=== PATIENT | male | born 1990 | race Caucasian/White ===

== ENCOUNTER 2021-06-23 05:34 | Outpatient (CLI) | payer BC ==
[~2021-06-23] VITALS: Ht 170.2 cm; Wt 70.5 kg
== END 2021-06-28 15:57 | disposition home or self-care (01) ==
LOC: PREOP 05:34
PROVIDERS: ATTEND Surgery
DX: Z01.818 Encounter for other preprocedural examination (principal)

== ENCOUNTER 2021-06-30 08:05 | Day surgery (SDC) | payer BC ==
[~2021-06-30] VITALS: Ht 170.2 cm; Wt 70.5 kg
[2021-06-30] VITALS (10 sets, daily range): BP systolic 107–139; BP diastolic 65–89
[2021-06-30] MEDS ORDERED: ceFAZolin INJECTION 1,000 MG ONE (08:44)
[2021-06-30] MEDS: LACTATED RINGERS 1,000 ML IV PRN ×2 (08:45→10:50)
[2021-06-30] MEDS ORDERED: ceFAZolin INJECTION 1,000 MG VIAL IV ONE (09:00)
--- NOTE | 2021-06-30 09:30 | Progress Note-Pre Operative ---
Pre-Operative Progress Note H&P Reviewed The H&P was reviewed, patient examined and no changes noted. Date Seen by Provider: Jun 30, 2021 Time Seen by Provider: 09:30 Date H&P Reviewed: Jun 30, 2021 Time H&P Reviewed: 09:30 Pre-Operative Diagnosis: umbilical hernia DARRYL GONZALEZ DO Jun 30, 2021 09:30
[2021-06-30] MEDS ORDERED: fentaNYL INJ 100 MCG/2 ML AMP ONE (09:47)
[2021-06-30] MEDS ORDERED: ONDANSETRON 4 MG/2 ML (SDV) Z0FRAN ONE (09:47)
[2021-06-30] MEDS ORDERED: GLYCOPYRROLATE 0.2 MG/ML (ROBINUL) 2 ML VIAL ONE (09:47)
[2021-06-30] MEDS ORDERED: NEOSTIGMINE 3 MG/3 ML VIAL ONE (09:47)
[2021-06-30] MEDS ORDERED: ROCURONIUM 10 MG/ML 5 ML SYRINGE IV ONE (09:47)
[2021-06-30] MEDS ORDERED: LIDOCAINE PF 2% 5 ML (XYLOCAINE) VIAL ONE (09:47)
[2021-06-30] MEDS ORDERED: proPOfol 200 MG/20 ML (DIPRIVAN) VIAL IV ONE (09:47)
[2021-06-30] MEDS ORDERED: MIDAZOLAM 2 MG/2 ML (VERSED) VIAL ONE (09:48)
[2021-06-30] MEDS ORDERED: LIDOCAINE/EPI 1%-1:200,000 (XYLOCAINE) 30 ML VIAL ONE (09:50)
[2021-06-30] MEDS ORDERED: HYDROmorphone 2 MG/ML VIAL (DILAUDID) ONE (11:32)
[2021-06-30] MEDS ORDERED: KETOROLAC 30 MG/ML VIAL ONE (11:34)
[2021-06-30] MEDS ORDERED: SEVOFLURANE (ULTANE) 15 ML INHAL SOLN ONE (11:35)
[2021-06-30] MEDS ORDERED: ACHD5005 PO (11:45)
[2021-06-30] MEDS ORDERED: DOCU-143 PO (11:45)
--- NOTE | 2021-06-30 11:47 | Discharge Inst-Simple/Standard ---
Discharge Inst-Standard Discharge Medications New, Converted or Re-Newed RX: Transmitted to Pharmacy Patient Instructions/Follow Up Plan of Care/Instructions/FU: 2-3 weeks Casandra Activity as Tolerated: No Discharge Diet: Regular Diet Other Inst to Patient Follow up Appt: Make appointment for 2-3 week. Instructions: No lifting greater than 10 pounds. No strenuous activity. May shower in 24 hours, no tub bath or soaking. Use incentive spirometer at home as directed. No Smoking Skin/Wound Care: You have special glue over your incision that will fall off on it's own. Symptoms to Report: Appetite Changes, Extremity Discoloration, Numbness/Tingling, Swelling Increas ed, Bleeding Excessive, Eyesight Changes, Pain Increased, Urine Color Change, Constipation(Persistent), Fever over 101 degree F, Pain/Pressure in chest, Urinating Difficulty, Cough Up/Vomit Blood, Heart Beat Irreg/Pounding, Pain/Pressure in jaw, Vaginal Bleeding Increase, Cramps in feet or legs, Lightheadedness, Pain/Pressure in shoulder, Diarrhea(Persistent), Memory Changes Suddenly, Questions/Concerns, Weight gain consecutive days, Dizziness/Fainting, Nausea/Vomiting, Shortness of Breath, Weight gain over 2 pounds If questions or concerns contact your physician Or seek help at emergency department. DARRYL GONZALEZ DO Jun 30, 2021 11:47
--- NOTE | 2021-06-30 11:49 | Progress Note-Post Operative ---
Post-Operative Progess Note Surgeon (s)/Fish Fryer (s) Surgeon DARRYL GONZALEZ DO Fish Fryer: Dr. Elena to assist in retraction dissection and closure. Pre-Operative Diagnosis umbilical hernia Post-Operative Diagnosis incarcerated umbilical hernia Procedure & Operative Findings Date of Procedure 06/30/21 Procedure Performed/Findings robotic incarcerated umbilical hernia repair with mesh Anesthesia Type general Estimated Blood Loss Estimated blood loss (mL): minimal Specimens/Packing Specimens Removed na DARRYL GONZALEZ DO Jun 30, 2021 11:49
[2021-06-30] MEDS ORDERED: HYDROmorphone 2 MG/ML VIAL (DILAUDID) IV ONE (12:00)
[2021-06-30] MEDS ORDERED: ONDANSETRON 4 MG/2 ML (SDV) Z0FRAN IVP PRN (12:00)
[2021-06-30] MEDS ORDERED: HYDROcodone/APAP 5 MG/325 MG (LORTAB) TAB ONE (12:57)
[2021-06-30] MEDS ORDERED: HYDROcodone/APAP 5 MG/325 MG (LORTAB) TAB PO ONE (13:00)
--- NOTE | 2021-06-30 13:12 | Anesthesia-General Post-Op ---
General Patient Condition Mental Status/LOC: Same as Preop Cardiovascular: Satisfactory Nausea/Vomiting: Absent Respiratory: Satisfactory Pain: Controlled Complications: Absent Post Op Complications Complications None Follow Up Care/Instructions Patient Instructions None needed. Anesthesia/Patient Condition Patient Condition Patient is doing well, no complaints, stable vital signs, no apparent adverse anesthesia problems. No complications reported per nursing. D/C home per [facility] Criteria: Yes PEDRITO IBRAHIM CRNA Jun 30, 2021 13:12
--- NOTE | 2021-07-01 21:53 | OPERATIVE REPORT ---
DATE OF SERVICE: 06/30/2021 PREOPERATIVE DIAGNOSIS: Umbilical hernia. POSTOPERATIVE DIAGNOSIS: Incarcerated umbilical hernia. PROCEDURE: Robotic incarcerated umbilical hernia repair with mesh. SURGEON: Darryl Guajardo DO. OVEREDGER: Dr. Elena, assisted in retraction, dissection and closure. ANESTHESIA: General. ESTIMATED BLOOD LOSS: Minimal. COMPLICATIONS: None. INDICATIONS: The patient is a 30-year-old male with umbilical hernia that causing discomfort. He understands risks and benefits and wishes to proceed. Consent was signed in the chart. DESCRIPTION OF PROCEDURE: The patient was taken to the operating suite, was prepped and draped in sterile fashion. Surgical pause was performed. Local anesthetic was infiltrated in the left upper quadrant and 11 blade scalpel was used to make a small skin incision and cautery used to dissect down to the fascia, which was then scored, the muscle was divided bluntly. The posterior fascia was divided and the pittman trocar was then inserted into the abdomen and pneumoperitoneum was achieved. Under direct visualization of the laparoscope, two 5 mm trocars were placed in left lower quadrant. The robot was then docked. Scissors with cautery was used to take down the falciform ligament, also finding the hernia, which was just above the umbilicus, which was incarcerated. Defect was small. A stab incision was made at the hernia site. An Echo Ventralight mesh was inserted in the abdomen, which was grasped and pulled up balloon was insufflated using 2-0 180 V-Loc. The mesh was sutured circumferentially. The balloon was removed and an inner stitch on the mesh was placed. This was done with a decreased abdominal pressure. The robot was then undocked, the trocars were removed and the 12 mm fascial defect was then closed using 0 Vicryl in a [id number] fashion. The skin was then closed using 4-0 Monocryl in a subcuticular fashion and the skin was then washed and dried. Skin Affix was placed over the incisions. The patient tolerated procedure well without any complications, taken to recovery room in stable condition. Job ID: [id number] DocumentID: [id number] Dictated Date: 07/01/2021 18:05:36 Rotary Drum Dyer Date: 07/01/2021 21:53:10 Dictated By: DARRYL GUAJARDO DO
== END 2021-06-30 13:45 ==
LOC: SDC 08:05
PROVIDERS: ATTEND Surgery
DX: K42.0 Umbilical hernia with obstruction, without gangrene (principal); F17.210 Nicotine dependence, cigarettes, uncomplicated
CPT/HCPCS: 49653; 87081; 94664; C1781